=== PATIENT | female | born 1985 | race Caucasian/White ===

== ENCOUNTER 2020-12-31 22:57 | Emergency (ER) | payer OTHER, SELFPAY ==
--- NOTE | ~2020-12-31 | XR_ITS ---
EXAMINATION: XR chest 1V portable EXAM DATE: 01/01/2021 01:46 INDICATION: Syncope Today, Hx Of Syncope, Pacemaker July 2020 TECHNIQUE: Portable AP frontal chest x-ray was obtained. There is no prior study for comparison. FINDINGS: There is a dual lead pacemaker/AICD seen with leads projecting over the expected locations of the right atrial appendage and right ventricle. The lungs are clear. There are no pleural effusio ns. The cardiomediastinal silhouette is within normal limits. There is no pneumothorax suspected. The bones and soft tissues are unremarkable. IMPRESSION: No acute cardiopulmonary findings. Reviewed, dictated and finalized at location A.
[2020-12-31 23:00] VITALS: BP 120/89; PULSE 71; RESP 19; TEMP 36.2; O2SAT 99
[2020-12-31 23:11] VITALS: PULSE 73
[2020-12-31 23:15] VITALS: BP 111/78; PULSE 69; RESP 15; O2SAT 98
[2021-01-01] VITALS (7 sets, daily range): BP systolic 100–119; BP diastolic 55–95; PULSE 67–83; RESP 12–20; O2SAT 98–100
--- NOTE | 2021-01-01 00:40 | ECG_ITS ---
Measurements Intervals [place] Rate: 70 P: 79 [place]: 172 QRS: 62 QRSD: 89 T: 63 QT: 400 QTc: 434 Interpretive Statements SINUS RHYTHM BASELINE ARTIFACT- II, III, AVR, AVL, AVF, V3-V6 NORMAL ECG Electronically Signed On 01-01-2021 7:08:30 CDT by Raheem Salvador D.O.
[2021-01-01 01:07] LABS: Basophils Percent Auto 0.3 % (0.2-1.2); Eosinophils Absolute Auto 0.4 K/mm3 (0-0.3); Eosinophils Percent Auto 6.7 % (0-4.4); Hematocrit 36.7 % (37.0-47.0); Hemoglobin 12.7 g/dL (12.0-15.0); Immature Granulocyte Absolute 0.01 K/mm3 (0.00-0.031); Immature Granulocyte Percent A 0.2 % (0-0.5); Lymphocytes Absolute Auto 2.35 K/mm3 (0.9-3.2); Lymphocytes Percent Auto 37.4 % (18.3-44.2); Mean Corpuscular HGB Conc 34.6 g/dl (32-36); Mean Corpuscular Hemoglobin 30.2 pg (26-34); Mean Corpuscular Volume 87.4 fl (80-100); Mean Platelet Volume 10.5 fl (7.4-10.4); Monocytes Absolute Auto 0.4 K/mm3 (0.1-0.6); Monocytes Percent Auto 6.5 % (2.6-8.5); Neutrophils Absolute Auto 3.1 K/mm3 (1.3-6.7); Neutrophils Percent Auto 48.9 % (45.5-73.1); Platelet Count Result 201 k/mm3 (150-375); Red Cell Distribution Width 12.9 % (11.5-14.5); White Blood Count 6.3 K/mm3 (4.5-10.0)
[2021-01-01 01:08] LABS: Add Urine Microscopic? NO; Appearance Urine Clear (Clear); Bilirubin Urine Negative (Negative); Blood Urine Negative (Negative); Color Urine Colorless (Yellow); Glucose Urine UA Negative (Negative); Ketones Urine Negative (Negative); Leukocyte Esterase Ur Negative LEU/UL (Negative); Nitrate Urine Negative (Negative); Protein Urine Negative (Negative); Urobilinogen Urine Negative mg/dL (<2.0)
[2021-01-01] MEDS: SODIUM CHLORIDE 0.9% IV 1,000 ML 999 ML IV CONT (01:13)
[2021-01-01 01:19] LABS: Lactic Acid Reflex 0.9 mmol/L (0.7-2.1)
[2021-01-01 01:20] LABS: Alanine Aminotransferase 21 U/L (4-35); Albumin Level 4.9 g/dL (3.5-5.1); Alkaline Phosphatase 67 U/L (38-126); Anion Gap 11 mmol/L (8-16); Aspartate Amino Transferase 32 U/L (14-36); Bilirubin,Total 0.3 mg/dL (0.2-1.3); Blood Urea Nitrogen 14 mg/dL (7-17); Calcium 9.4 mg/dL (8.4-10.2); Carbon Dioxide 26 mmol/L (22-30); Chloride 107 mmol/L (98-107); Estimated CRCL calculation 96 ml/min; Estimated Glomerular Filt Rate > 60; Glucose 93 mg/dL (65-110); INR 0.9; Magnesium 1.8 mg/dL (1.6-2.3); Potassium 4.5 mmol/L (3.4-5.0); Prothrombin Time 11.6 Seconds (11.1-14.7); Sodium 144 mmol/L (137-145)
[2021-01-01 01:21] LABS: Partial Thromboplastin Time 29.9 SECONDS (22.3-36.8)
[2021-01-01 01:22] LABS: Specific Grav Ur 1.004 (1.001-1.035)
--- NOTE | 2021-01-01 01:26 | PC.NURSE ---
Pacemaker interrogated at this time per ERP VRBO.
[2021-01-01 01:32] LABS: Troponin I < 0.012 ng/mL (0.000-0.034)
[2021-01-01 01:58] LABS: Ethanol 165 mg/dL (<10)
--- NOTE | 2021-01-01 02:30 | PC.NURSE ---
Pt walks to bathroom with steady gait, no assistance needed.
--- NOTE | 2021-01-01 02:40 | ED.GENADULT ---
HPI - General Adult General Chief complaint: Syncope Stated complaint: MULTIPLE SYNCOPAL EPISODES Time Seen by Provider: 01/01/21 00:25 History of Present Illness HPI narrative: Patient 35-year-old female presents emergency department with chief complaint of syncope. Patient has history of neurocardiogenic syncope and has a pacemaker. Patient states that she recently moved to the area from [place] and reports that she had multiple episodes of syncope today. The patient reports she did drink some alcohol reports she has a pacemaker and was unsure if her pacemaker was working. Related Data Allergies Allergy/AdvReac Type Severity Reaction Status Date / Time egg yolk Allergy Anaphylaxis Verified 01/01/21 00:00 metronidazole [From Flagyl] Allergy Anaphylaxis Verified 01/01/21 00:00 red dye Allergy Anaphylaxis Verified 01/01/21 00:00 Sulfa (Sulfonamide Allergy Anaphylaxis Verified 01/01/21 00:00 Antibiotics) Review of Systems Review of Systems: A 10 system review of systems was completed on the patient and is negative except for what is stated in the HPI. Nursing and ancillary documentation was reviewed. Exam Narrative: GENERAL: Well-appearing, well-nourished, and in no acute distress. HEAD: Normocephalic, atraumatic. EYES: PERRLA and EOMI. ENT: Nares clear, no rhinorrhea or epistaxis. Mucous membranes moist. NECK: Supple. CHEST: Clear to auscultation. No respiratory distress. HEART: Regular rate and rhythm. No murmur heard. Normal peripheral pulses. ABDOMEN: Soft, nontender, nondistended, normal active bowel sounds. EXTREMITIES: Normal range of motion. No edema. SKIN: Warm, dry, no rash. NEURO: No focal deficits. Alert and oriented x3. PSYCH: Normal mood and affect. Course Course Emergency Course: EKG is a sinus rhythm rate of [address] elevation or ST depression The patient's expected was interrogated by [employer] showed no evidence of malfunction and no evidence of dysrhythmia Vital Signs Vital signs: Vital Signs Temperature 36.2 C L 12/31/20 23:00 Pulse Rate 71 12/31/20 23:00 Respiratory Rate 19 12/31/20 23:00 Blood Pressure 120/89 12/31/20 23:00 Pulse Oximetry 99 12/31/20 23:00 Temperature 36.2 C L 12/31/20 23:00 Pulse Rate 83 01/01/21 02:58 Respiratory Rate 16 01/01/21 02:55 Blood Pressure 109/95 H 01/01/21 02:58 Pulse Oximetry 100 01/01/21 02:55 Medical Decision Making Vital Signs Vital Signs: Vital Signs Temperature 36.2 C L 12/31/20 23:00 Pulse Rate 71 12/31/20 23:00 Respiratory Rate 19 12/31/20 23:00 Blood Pressure 120/89 12/31/20 23:00 Pulse Oximetry 99 12/31/20 23:00 Temperature 36.2 C L 12/31/20 23:00 Pulse Rate 83 01/01/21 02:58 Respiratory Rate 16 01/01/21 02:55 Blood Pressure 109/95 H 01/01/21 02:58 Pulse Oximetry 100 01/01/21 02:55 Lab Data Result diagrams: 01/01/21 00:56 01/01/21 00:56 Labs: Lab Results 01/01/21 01/01/21 01/01/21 Range/Units 00:56 00:56 00:56 WBC 6.3 (4.5-10.0) K/mm3 RBC 4.20 (4.2-5.4) M/mm3 Hgb 12.7 (12.0-15.0) g/dL Hct 36.7 L (37.0-47.0) % MCV 87.4 (80-100) fl MCH 30.2 (26-34) pg MCHC 34.6 (32-36) g/dl RDW 12.9 (11.5-14.5) % Plt Count 201 (150-375) k/mm3 MPV 10.5 H (7.4-10.4) fl Immature Gran % (Auto) 0.2 (0-0.5) % Neut % (Auto) 48.9 (45.5-73.1) % Lymph % (Auto) 37.4 (18.3-44.2) % [place] % (Auto) 6.5 (2.6-8.5) % Eos % (Auto) 6.7 H (0-4.4) % Baso % (Auto) 0.3 (0.2-1.2) % Lymph # (Auto) 2.35 (0.9-3.2) K/mm3 [place] # (Auto) 0.4 (0.1-0.6) K/mm3 Eos # (Auto) 0.4 H (0-0.3) K/mm3 Baso # (Auto) 0.0 (0.0-0.1) K/mm3 Abs Immat Gran (auto) 0.01 (0.00-0.031) K/mm3 Absolute Neuts (auto) 3.1 (1.3-6.7) K/mm3 Absolute Nucleated RBC 0.0 (0.0-0.012) K/mm3 Nucleated RBC % 0.0 (0.0-0.2) % PT 11.6 (11.1-14.7) Seconds INR 0.9 APTT 29.9 (22.3
== END 2021-01-01 03:57 | disposition home or self-care (01) ==
PROVIDERS: Emergency Provider Emergency Medicine
DX: R55 Syncope and collapse (principal)
CPT/HCPCS: 36415; 71045; 80053; 80307; 81003; 83605; 83735; 84484; 85025; 85610; 85730; 93005; 96360; 99284; J7030

== ENCOUNTER 2023-05-07 00:29 | Emergency (ER) | payer OTHER, SELFPAY ==
[2023-05-07 00:27] VITALS: BP 110/84; PULSE 90; RESP 15; TEMP 36.6; O2SAT 100
--- NOTE | 2023-05-07 00:35 | ECG_ITS ---
Measurements Intervals [place] Rate: 81 P: 74 [place]: 168 QRS: 62 QRSD: 92 T: 54 QT: 382 QTc: 444 Interpretive Statements SINUS RHYTHM NORMAL ECG COMPARED TO ECG 12/31/2020 23:10:41 NO SIGNIFICANT CHANGES Electronically Signed On 05-07-2023 15:07:22 [employer]ARD TENDER by Denys Lyn M.D.
--- NOTE | 2023-05-07 00:51 | PC.NURSE ---
When going to draw patient's blood, patient states she does not want to be evaluated or have any further assessment. Patient is AOx4 and follows commands appropriately. Patient states she wants to leave. EDP notified and states the patient is able to leave regardless of her status with police. Patient ambulates to the waiting room without incident.
== END 2023-05-07 01:00 | disposition left against medical advice (07) ==
PROVIDERS: Emergency Provider Student in an Organized Health Care Education/Training Program
DX: R55 Syncope and collapse (principal)
CPT/HCPCS: 93005; 99199